=== PATIENT | male | born 1950 | race Caucasian/White ===

== ENCOUNTER 2017-05-04 01:05 | Day surgery (SDC) | payer MEDICARE, OTHER ==
[~2017-05-04] VITALS: Ht 177.8 cm; Wt 76.0 kg
[2017-05-04] VITALS (14 sets, daily range): BP systolic 92–112; BP diastolic 51–69; PULSE 45–62; RESP 13–18; O2SAT 95–100
[~2017-05-04 01:05] MED LIST: ASPI-973 PO; METO25TA99 PO; RANI150T11 PO
[2017-05-04 11:38] LABS: BASOPHILS % (AUTO) 0.5 % (0-3); EOSINOPHILS % (AUTO) 3.3 % (0-5); MONOCYTES % (AUTO) 6.4 % (4-12); Mean Corpuscular Volume 92.5 fL (81-100); NEUTROPHILS % (AUTO) 67.4 % (40-74); Platelet Count 256 bil/L (150-400)
[2017-05-04] MEDS ORDERED: ATOR40TA69 PO (11:56)
[2017-05-04] MEDS ORDERED: Heparin 10,000 Unit/1,000 mL NS Premix IV ONE ×2 (12:42→14:10)
[2017-05-04] MEDS ORDERED: Heparin 1,000 Units/500 mL NS Premix IV ONE (12:42)
[2017-05-04] MEDS ORDERED: Nitroglycerin 50,000 mcg/250 mL D5W Premix IV ONE (12:45)
[2017-05-04] MEDS ORDERED: Verapamil 2.5 mg/mL 2 mL Inj ONE (12:56)
[2017-05-04] MEDS ORDERED: Heparin 1,000 Unit/mL 10 mL Inj ONE ×2 (12:56→14:32)
[2017-05-04] MEDS ORDERED: fentaNYL-PF 50 mCg/mL 2 mL Inj ONE ×2 (12:57→13:52)
[2017-05-04] MEDS ORDERED: Atropine 1 mg/10 mL (Code) Syringe ONE (13:45)
--- NOTE | 2017-05-04 15:31 | DI95 ---
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 INDICATION: Abnormal stress test, recurrent chest pain. PROCEDURAL DETAILS: These are well enumerated in the procedure log, to which the reader and the coders are referred. Briefly, right radial approach, 6-Russian system. ANGIOGRAPHIC FINDINGS: 1. LAD is totally occluded proximally, just past the takeoff of a small 1st septal branch. 2. Circumflex is dominant. It is free of any critical stenosis. 3. The ramus intermedius is a small vessel of about a 1-1.5 mm. In its mid segment it has a 60% to 70% stenosis. 4. Right coronary artery is nondominant. Proximally it has a 70% lesion. 5. Left heart catheterization revealed an LVEDP of 10. There was about a 5-10 mm gradient upon pullback. INTERVENTIONAL REPORT: We then proceeded ahead with an intervention on the chronically occluded LAD. We started off with a Runthrough wire which was switched for a Reservations Manager 50, subsequently a Reservations Manager 200 wire. In order to provide better support a GuideLiner was used and the wire was delivered over a Finecross catheter. We were finally able to cross both the proximal and the distal cap with a Confianza wire. Subsequently the Confianza wire was exchanged out for a Runthrough wire. Balloon angioplasty was then done sequentially with a 1.20, 1.5, and 2.0 balloon. We finally stented the vessel with a 2.75 x 23 mm Xience drug-coated stent delivered at 16 atmospheres with excellent angiographic results. There was mild proximal plaque in the ostial and the very proximal LAD. This is best treated medically. With regards to his nondominant right coronary artery, this is also best treated medically. In summary, successful intervention of chronically occluded LAD. The patient is advised to stay on dual antiplatelet therapy for six months post procedure.
--- NOTE | 2017-05-04 18:32 | NUR ---
Pt transferred to P[facility] room 2001. Pt's VSS, Rt radial access site CDI with no bleeding/hematoma noted after TR band successfully removed. Report and pt handoff given to Maida SALINAS.
[2017-05-05 03:15] VITALS: PULSE 60
--- NOTE | 2017-05-05 03:24 | NUR ---
Nursing, noc shift 0100: Assumed care of patient from RITA Winn. Patient resting comfortably, R radial site dressing is CDI, no hematoma or bleeding noted. SBA mobility/BRP. Denies pain/discomfort. anticipate d/c home today. CTM for changes.
[2017-05-05 03:44] VITALS: BP 105/65; PULSE 59; RESP 16; O2SAT 97
[2017-05-05 07:39] VITALS: BP 109/63; PULSE 58; RESP 14; O2SAT 95
[2017-05-05 08:00] VITALS: PULSE 62
[2017-05-05] MEDS ORDERED: MeTOProlol XL 50 mg ER24 Tablet PO SCH (08:30)
--- NOTE | 2017-05-05 10:07 | NUR ---
Status/HR 0815 PA notified of SB 55. To hold beta edgardo this am per PA. Pt w/o complaints with stable right radial puncture. Eating and drinking. No GI/Gu concerns. Ambulating in halls with , stable and no complaints. Will continue to monitor.
--- NOTE | 2017-05-05 11:07 | PCM.DIMED ---
Discharge Instructions Date of Service May 05, 2017 Dates of Hospitalization 05/04/2017 Discharge Diagnosis Discharge Diagnosis CAD, s/p ALDO placement to LAD Medication Instructions Additional med instructions Please take all medications as prescribed. Please make sure that you take Plavix (Clopidogrel) every day at least one year. It is very important because you had stent placement. Diet Discharge Diet: Low fat, Low Sodium, Heart Healthy Activity Discharge Activity: Other (please see below) Call your provider Call your provider for: Shortness of breath, Bleeding, Chest pain Patient Instructions Patient Instructions No car driving for couple of days; you can have shower starting today; please do not soak your right arm in hot water for one week; no heavy lifting, no more than 7-10 lb for one week, otherwise please be physically active as tolerated. Follow-up plan Check CMP, CBC in one week. Provider: Leeroy Alaniz MD Follow-up in: 3 weeks Booker Tolliver PA-C May 05, 2017 11:06
--- NOTE | 2017-05-05 11:08 | PCM.DC.MED ---
Discharge Summary Date of Service May 05, 2017 Dates of Hospitalization Date of Hospital Admission 05/04/2017 Date of Discharge: May 05, 2017 Providers: Admitting Physician: Primary Care Physician: Jon Lugo MD Attending Physician: Leeroy Alaniz MD Diagnosis at Time of Discharge Diagnosis at Time of Discharge CAD, s/p ALDO placement to LAD Brief History This is a 67-year-old gentleman who had abnormal cardiac stress test and an angina, and he had elective cardiac catheterization done on 05/04/2017 Hospital Course Coronary angiography was done with a radial approach; the patient had successful intervention of chronically occluded LAD which was treated with ALDO placement. The patient tolerated procedure well. He ambulates freely. Denies having any chest discomfort or POLK, does not have symptoms of nocturnal pulmonary congestion, denies having palpitations, or dizziness/lightheadedness. His right wrist area (access site) is nontender with palpation, no bleeding, no hematoma, peripheral pulses preserved. Per telemetry: sinus rhythm with HR in 60s-70s bpm. Medications on discharge are below. Exam Vital Signs (Last) Date Time Temp Pulse Resp B/P Pulse Ox O2 Delivery O2 Flow Rate FiO2 05/05/17 07:39 36.8 58 14 109/63 95 Room Air Exam General: No active distress EENT: Mucous membranes moist, sclerae anicteric Neck: Supple, no thyromegaly Pulmo: Normal breathing sounds bilaterally, no crackles, no wheezing Cardio: RRR, no murmur appreciated, JVP is not elevated Abdomen: Nontender with palpation Vascular: No carotid bruits, peripheral pulses preserved Neuro: A&Ox3, no gross abnormalities Test 05/04/17 11:20 05/05/17 08:15 White Blood Count 7.8th/mm3 (3.8-10.1) Red Blood Count 4.39mil/mm3 (4.40-5.80) Hemoglobin 13.6g/dL (13.8-17.2) Hematocrit 40.6% (41.0-50.0) Mean Corpuscular Volume 92.5fL (81-100) Mean Corpuscular Hemoglobin 31.0pg (27.0-35.0) Mean Corpuscular Hemoglobin Concent 33.5% (32.0-37.0) Red Cell Distribution Width 12.1% (12.3-15.4) Platelet Count 256bil/L (150-400) Neutrophils (%) (Auto) 67.4% (40-74) Lymphocytes (%) (Auto) 22.3% (14-46) Monocytes (%) (Auto) 6.4% (4-12) Eosinophils (%) (Auto) 3.3% (0-5) Basophils (%) (Auto) 0.5% (0-3) Sodium Level 139mEq/L (134-144) Potassium Level 4.4mEq/L (3.5-5.2) Chloride Level 103mEq/L (97-108) Carbon Dioxide Level 25mmol/L (18-29) Blood Urea Nitrogen 13mg/dL (8-27) Creatinine 0.70mg/dL (0.76-1.27) Estimat Glomerular Filtration Rate 119mL/min (>59) Glucose Level 112mg/dL (60-99) Calcium Level 9.4mg/dL (8.5-10.1) Discharge Medications Discharge Medications Aspirin (Aspirin) 81 Mg Tablet 81 MG PO DAILY (Reported) Atorvastatin Calcium (Atorvastatin Calcium) 80 Mg Tablet 80 MG PO DAILY ( Reported) Clopidogrel Bisulfate (Plavix) 75 Mg Tablet 75 MG PO DAILY (Reported) Metoprolol Succinate ER (Metoprolol Succinate ER) 25 Mg Tab.er.24h 25 MG PO HS ( Reported) Ranitidine (Zantac) 150 Mg Tablet 150 MG PO DAILY (Reported) Ranitidine (Zantac) 150 Mg Tablet 75 MG PO DAILYWM (Reported) Additional med instructions Please take all medications as prescribed. Please make sure that you take Plavix (Clopidogrel) every day at least one year. It is very important because you had stent placement. Followup Plan Discharge Diet: Low fat, Low Sodium, Heart Healthy Discharge Activity: Other (please see below) Patient Instructions No car driving for couple of days; you can have shower starting today; please do not soak your right arm in hot water for one week; no heavy lifting, no more than 7-10 lb for one week, otherwise please be physically active as tolerated. Provider: Leeroy Alaniz MD Follow-up in: 3 weeks Booker Tolliver PA-C May 05, 2017 11:08
[2017-05-05] MEDS ORDERED: ATOR80TA77 PO (12:03)
[2017-05-05] MEDS ORDERED: CLOP75TA28 PO (12:03)
[2017-05-05] MEDS ORDERED: METO25TA99 PO (12:03)
--- NOTE | 2017-05-05 12:56 | NUR ---
Discharge Pt dc'd ambulatory with and LOGGING SUPERINTENDENT at 1255. Stable and w/o complaints. All discharge paperwork and instructions reviewed and pt and verbalized understanding. All belongings with pt.
== END 2017-05-05 12:45 | disposition home or self-care (01) ==
LOC: SOUO 01:05 → PCC 18:23 → SOUO 05-05 12:45
PROVIDERS: ATTEND Internal Medicine Cardiovascular Disease
DX: I25.119 Atherosclerotic heart disease of native coronary artery with unspecified angina pectoris (principal); I25.82 Chronic total occlusion of coronary artery; Z79.82 Long term (current) use of aspirin
CPT/HCPCS: 36415; 80048; 85025; 93005; 93458; 99152; 99153; C1725; C1769; C1874; C1887; C9607; J1644; J2250; J3010; J7030; Q9967

== ENCOUNTER 2017-05-09 13:00 | Observation (INO) | payer MEDICARE, OTHER ==
[2017-05-09] VITALS (7 sets, daily range): BP systolic 11–121; BP diastolic 55–74; PULSE 68–73; RESP 12–18; O2SAT 98–99
[~2017-05-09] VITALS: Ht 175.3 cm; Wt 74.3 kg
[~2017-05-09 13:00] MED LIST changes: +ATOR40TA69 PO; +ATOR80TA77 PO; +CLOP75TA28 PO
--- NOTE | 2017-05-09 13:11 | ED.REPORT ---
HPI-Chest Pain 40 and Over Date of Service May 09, 2017 ED Provider: Jose Luis Christensen MD 67-year-old male with CAD, GERD and recent history of pneumonia and coronary stent placement presents today with chest pain. Patient was diagnosed with pneumonia 2 weeks ago and was treated with antibiotics. However in the workup for this pneumonia was found that the patient had an occlusion of the coronary vessel which was subsequently stented. The patient presents today with chest pain and midepigastric pain which radiates along the diaphragm. The pain is made worse with deep inhalation. The pain typically comes and goes, and at the moment he rates his pain as a 2/10. Patient states that he feels this pain is similar to pain experienced with the pneumonia. He also has a history of GERD for which he takes Zantac, he states that this morning he did not take the Zantac until after breakfast, whereas he typically will take before breakfast. Patient also complains of dizziness, he states that this started shortly after his stent placement and initiation of metoprolol. He is taking Plavix as prescribed since stent placement Nursing Notes Stated Complaint: CHEST PAIN Chief Complaint: Chest Pain Allergies: Coded Allergies: cortisone (Verified Allergy, Unknown, 05/09/17) Scheduled Aspirin (Aspirin) 81 Mg Tablet 81 MG PO DAILY Atorvastatin Calcium (Atorvastatin Calcium) 80 Mg Tablet 80 MG PO DAILY Clopidogrel Bisulfate (Plavix) 75 Mg Tablet 75 MG PO DAILY Metoprolol Succinate ER (Metoprolol Succinate ER) 25 Mg Tab.er.24h 25 MG PO HS Ranitidine (Zantac) 150 Mg Tablet 150 MG PO DAILY Ranitidine (Zantac) 150 Mg Tablet 75 MG PO DAILYWM General Time Seen by MD: 13:07 Chief Complaint Chest pain Hx Obtained From: Patient Sudden in Onset?: No Onset Occurred: Just prior to arrival Symptom Duration: Waxes and wanes Location: : Epigastric Quality: Aching, Dull Severity: Current: Pain level 2 out of 10 Risk Factors )( CAD Risk Stratification Risk factors reviewed )( TAD Risk Stratification Risk factors reviewed )( PE Risk Stratification Risk factors reviewed Past Medical History Past Medical History Recent stent placement CAD GERD Recent pneumonia - treated with antibiotics Social History Other Social History: Review of Systems Basic Review of Systems : No dysuria, No frequency Hematologic: No bleeding, No bruising Constitutional: Denies: Chills, Fever Respiratory: Reports: Dyspnea on exertion Cardiovascular: Reports: Chest pain GI: Reports: Belching Neurologic: Reports: Dizziness, Lightheaded, Denies: Change LOC Complete sys rev & neg: except as marked. Physical Exam Initial Vital Signs Vital Signs (First) Date Time Temp Pulse Resp B/P Pulse Ox O2 Delivery O2 Flow Rate FiO2 05/09/17 13:01 36.7 73 16 109/71 99 Room Air Initial VS: Reviewed Head / Eyes: Atraumatic, Normocephalic, PERRL ENT: Mucous membranes moist, Conjunctiva normal, No scleral icterus Neck: Supple, Non-tender, Full range of motion Extremities: Vascular intact, No swelling Skin: Warm, Dry, No cyanosis Neurologic: Alert, Oriented Psychiatric: Mood/affect normal, Behavior normal, Normal thought content Respiratory / Chest: Breath sounds NL, No respiratory distress, No rales, No rhonchi, No wheezing Cardiovascular: Heart rate NL, Regular rhythm, Heart sounds NL Interpretation & Diagnostics Lab Results Interpretation Result Diagram: 05/10/17 0600 05/10/17 0600 Test 05/09/17 13:26 05/09/17 13:51 Prothrombin Time 10.4sec (8.1-12.5) Prothromb Time International Ratio 0.97ratio Activated Partial Thromboplast Time 27.5sec (22.8-33.0) Total Bilirubin 1.1mg/dL (0.0-1.2) Aspartate Amino Transf (AST/SGOT) 27U/L (0-50) Alanine Aminotransferase (ALT/SGPT) 20U/L (0-44) Alkaline Phosphatase 71U/L (25-160) Total Protein 7.4g/dL (6.4-8.4) Albumin 3.9g/dL (3.4-5.0) Hold Santana Top Tube Received (Received) ECG Interpretation Interpreted by: ED physician Normal ECG Interpretation: Normal rate, Normal sinus rhythm, No acute ischemic changes Re-Eval/Medical Decision Med Decision/Clinical Course ECG another cardiac monitoring including troponins resulted as normal. Chest x- ray notes that there is a left lower lobe effusion present which could be the reason for his presentation today, however ACS cannot be ruled out at this time. For this reason cardiology was consulted and requested the patient be admitted to the hospital for observation and ACS rule out. Counseled Regarding: Diagnosis, Lab results, Need for admission Discharge & Departure Primary Impression: Chest pain Chest pain type: chest pain on breathing Qualified Code: R07.1 - Chest pain on breathing Additional Impression: Stented coronary artery Disposition: ADMITTED TO HOSPITAL Discharge Condition All VS Reviewed: Yes Condition: Stable Referrals: Jon Lugo MD (PCP) EDSupervising Provider for APC: Jose Luis Christensen MD Attending Statement Attending attestation: I saw this patient in conjunction with the above named resident. I was present for all ortega portions of the history taking and physical examination. I agree with the workup, evaluation, treatment and disposition. Jose Luis Tate MD, MD May 09, 2017 13:11 Devan Rodriguez May 09, 2017 13:22 Calcium Level 9.6mg/dL (8.5-10.1) Magnesium Level 2.1mg/dL (1.6-2.6) Total Bilirubin 1.1mg/dL (0.0-1.2) Aspartate Amino Transf (AST/SGOT) 27U/L (0-50) Alanine Aminotransferase (ALT/SGPT) 20U/L (0-44) Alkaline Phosphatase 71U/L (25-160) Troponin T < 0.010ug/L (0.0-0.011) Total Protein 7.4g/dL (6.4-8.4) Albumin 3.9g/dL (3.4-5.0) Hold Santana Top Tube Received (Received) ECG Interpretation Interpreted by: ED physician Normal ECG Interpretation: Normal rate, Normal sinus rhythm, No acute ischemic changes Re-Eval/Medical Decision Med Decision/Clinical Course ECG another cardiac monitoring including troponins resulted as normal. Chest x- ray notes that there is a left lower lobe effusion present which could be the reason for his presentation today, however ACS cannot be ruled out at this time. For this reason cardiology was consulted and requested the patient be admitted to the hospital for observation and ACS rule out. Counseled Regarding: Diagnosis, Lab results, Need for admission Discharge & Departure Primary Impression: Chest pain Chest pain type: chest pain on breathing Qualified Code: R07.1 - Chest pain on breathing Additional Impression: Stented coronary artery Disposition: ADMITTED TO HOSPITAL Discharge Condition All VS Reviewed: Yes Condition: Stable Referrals: Jon Lugo MD (PCP) EDSupervising Provider for APC: Jose Luis Christensen MD Attending Statement Attending attestation: I saw this patient in conjunction with the above named resident. I was present for all ortega portions of the history taking and physical examination. I agree with the workup, evaluation, treatment and disposition. Jose Luis Tate MD, MD May 09, 2017 13:11 Devan Rodriguez DO May 09, 2017 13:22
[2017-05-09] MEDS ORDERED: LidocaineVisc 2%:Antacid 1:1 10 mL Syringe PO ONE (13:20)
[2017-05-09 13:38] LABS: BASOPHILS % (AUTO) 0.4 % (0-3); EOSINOPHILS % (AUTO) 1.8 % (0-5); MONOCYTES % (AUTO) 7.6 % (4-12); Mean Corpuscular Hemoglobin 30.9 pg (27.0-35.0); Mean Corpuscular Volume 91.9 fL (81-100); NEUTROPHILS % (AUTO) 72.7 % (40-74); Platelet Count 298 bil/L (150-400)
[2017-05-09 14:20] LABS: Magnesium 2.1 mg/dL (1.6-2.6)
--- NOTE | 2017-05-09 14:23 | DRSVH ---
PROCEDURE: X-RAY CHEST, TWO VIEWS ([id number]) INDICATIONS: 67 year-old male with chest pain, and recent cardiac stent placement. TECHNIQUE: 2 views of the chest were acquired. COMPARISON: [facility], , CHEST 2 VIEW, 04/08/2017, 14:06. [facility], , CHEST 2 VIEW, 03/28/2017, 8:47. [facility], , CHEST 2 VIEW, 03/12/2017, 9:46. FINDINGS: Surgical changes and devices: None. Lungs and pleura: Left costophrenic angle blunting is unchanged. No pneumothorax. Lungs are clear. Mediastinum: Mediastinal contours are normal. Heart size is normal. There is aortic atherosclerosi s. Bones and chest wall: No suspicious bony abnormalities. Soft tissues appear unremarkable. IMPRESSION: No acute cardiopulmonary disease. Trace basal left pleural effusion versus basal left ple ural thickening as before. Dictated by: Catracho Harrison M.D. on 05/09/2017 at 14:20 Approved by: Catracho Harrison M.D. on 05/09/2017 at 14:21
[2017-05-09 14:32] LABS: TROPONIN T < 0.010 ug/L (0.0-0.011)
[2017-05-09] MEDS ORDERED: Alum-Mag Hydrox-Simeth 30 mL Suspension PO PRN ×2 (16:25→18:55)
[2017-05-09] MEDS ORDERED: Ondansetron 2 mg/mL 2 mL Inj IVPUSH PRN ×2 (16:25→18:55)
[2017-05-09 17:10] LABS: COLOR,URINE YELLOW (YELLOW)
[2017-05-09 17:11] LABS: APPEARANCE,URINE CLEAR (CLEAR,HAZY); OCCULT BLOOD,URINE NEGATIVE (NEGATIVE); UROBILINOGEN,URINE NORMAL (NORMAL)
--- NOTE | 2017-05-09 17:15 | NUR ---
ADMIT TO [facility] [place] Report received from Chiquita Fregoso RN in ED. Pt brought up to floor at 1715 via gurney. Able to transfer on foot to bed. Strong and steady on feet. Admission interventions and MED REC completed. Pt oriented to unit, room and call light. All belongings recorded - waiver signed. Tele placed - SR 68. Pt reports minor 1/10 chest pain - possibly related to Pneumonia/GERD. paged to update.
[2017-05-09] MEDS ORDERED: RANI150T11 PO ×3 (17:26→19:15)
[2017-05-09] MEDS ORDERED: Polyethylene Glycol (PEG) 17 Gm Powder PO PRN (18:55)
[2017-05-09] MEDS ORDERED: ASPI-973 PO (19:06)
[2017-05-09] MEDS ORDERED: ATOR80TA77 PO (19:08)
[2017-05-09] MEDS ORDERED: ATOR40TA69 PO (19:08)
--- NOTE | 2017-05-09 19:11 | PCM.HPMED ---
Subjective Date of Service May 09, 2017 Primary Provider: Admitting Physician: cM Fox Primary Care Physician: Jon Lugo MD Attending Physician: Mc Fox Chief Complaint: chest pain History of Present Illness: 67-year-old male with CAD, GERD and recent history of pneumonia and coronary stent placement presents today with chest pain. He says he was diagnosed with pneumonia about 2 months ago after presenting to his PCP with complaints of midsternal chest discomfort with deep breathing. He did not have any associated fever or chills at that time but did have some associated cough and shortness of breath. Chest x-ray according to the patient was notable for pneumonia and he was put on 2 courses of Azithromycin back to back and then his symptoms resolved for 2 weeks and then reoccurred. According to patient repeat CXR was again suggestive of pneumonia and so this time he was put on a 10 course of Levofloxacin which he finished on 04/17/17. In the interim he underwent a stress test which was positive and was referred to cardiology (Dr. Alaniz) who performed a cardiac cath on 05/04 and ended up placing a stent to an occluded LAD. Patient had been symptom free since his cath till yesterday when started again feeling some mid-sternal chest discomfort and burning sensation with deep breathing. He called cardiology office and was instructed to go to urgent care and from there was sent to ED and in ED cardiology (Dr. Cannon) was consulted who reportedly recommended patient be admitted for further workup and observation. He otherwise denies any other associated or new signs or symptoms other than about 10 lb weight loss since March of 2017. Review of Systems: Constitutional: Negative, except as otherwise mentioned in the history above. Ophthalmologic: Negative, except as otherwise mentioned in the history above. Cardiovascular: Negative, except as otherwise mentioned in the history above. Respiratory: Negative, except as otherwise mentioned in the history above. Gastrointestinal: Negative, except as otherwise mentioned in the history above. Genitourinary: Negative, except as otherwise mentioned in the history above. Musculoskeletal: Negative, except as otherwise mentioned in the history above. Neurological: Negative, except as otherwise mentioned in the history above. Psychiatric: Negative, except as otherwise mentioned in the history above. Hematologic/Lymphatic: Negative, except as otherwise mentioned in the history above. Allergic/Immunologic: Negative, except as otherwise mentioned in the history above. Allergies Coded Allergies: cortisone (Verified Allergy, Unknown, 05/09/17) Home Medications Aspirin (Aspirin) 81 Mg Tablet 81 MG PO DAILY Atorvastatin Calcium (Atorvastatin Calcium) 80 Mg Tablet 80 MG PO DAILY Clopidogrel (Clopidogrel) 75 Mg Tablet 75 MG PO DAILY Metoprolol Succinate ER (Metoprolol Succinate ER) 25 Mg Tab.er.24h 25 MG PO DAILY Ranitidine (Zantac) 150 Mg Tablet 150 MG PO BID Exam Vital Signs & I/O Vital Sign- Last 8 Hours Date Time Temp Pulse Resp B/P Pulse Ox O2 Delivery O2 Flow Rate FiO2 05/09/17 17:30 71 05/09/17 17:11 36.7 68 16 121/73 98 Room Air 05/09/17 17:09 36.7 68 16 121/73 98 Room Air 05/09/17 15:14 73 16 99/60 98 Room Air 05/09/17 14:28 69 12 102/55 99 05/09/17 13:01 36.7 73 16 109/71 99 Room Air Lab & Micro Results Laboratory Tests Test 05/09/17 13:26 05/09/17 13:51 05/09/17 16:58 White Blood Count 10.3th/mm3 (3.8-10.1) Red Blood Count 4.46mil/mm3 (4.40-5.80) Hemoglobin 13.8g/dL (13.8-17.2) Hematocrit 41.0% (41.0-50.0) Mean Corpuscular Volume 91.9fL (81-100) Mean Corpuscular Hemoglobin 30.9pg (27.0-35.0) Mean Corpuscular Hemoglobin Concent 33.7% (32.0-37.0) Red Cell Distribution Width 12.3% (12.3-15.4) Platelet Count 298bil/L (150-400) Neutrophils (%) (Auto) 72.7% (40-74) Lymphocytes (%) (Auto) 17.1% (14-46) Monocytes (%) (Auto) 7.6% (4-12) Eosinophils (%) (Auto) 1.8% (0-5) Basophils (%) (Auto) 0.4% (0-3) Sodium Level 136mEq/L (134-144) Potassium Level 4.9mEq/L (3.5-5.2) Chloride Level 100mEq/L (97-108) Carbon Dioxide Level 19mmol/L (18-29) Blood Urea Nitrogen 17mg/dL (8-27) Creatinine 0.63mg/dL (0.76-1.27) Estimat Glomerular Filtration Rate 135mL/min (>59) Glucose Level 103mg/dL (60-99) Calcium Level 9.6mg/dL (8.5-10.1) Magnesium Level 2.1mg/dL (1.6-2.6) Total Bilirubin 1.1mg/dL (0.0-1.2) Aspartate Amino Transf (AST/SGOT) 27U/L (0-50) Alanine Aminotransferase (ALT/SGPT) 20U/L (0-44) Alkaline Phosphatase 71U/L (25-160) Troponin T < 0.010ug/L (0.0-0.011) Total Protein 7.4g/dL (6.4-8.4) Albumin 3.9g/dL (3.4-5.0) Hold Santana Top Tube Received (Received) Urine Color Yellow (YELLOW) Urine Appearance Clear (CLEAR,HAZY) Urine pH 5.0 (5.0-8.0) Urine Specific [place] 1.010 (1.003-1.035) Urine Protein Negativemg/dL (NEG,TRACE) Urine Glucose (UA) Negativemg/dL (NEGATIVE) Urine Ketones Tracemg/dL (NEGATIVE) Urine Occult Blood Negative (NEGATIVE) Urine Nitrite Negative (NEGATIVE) Urine Bilirubin Negative (NEGATIVE) Urine Urobilinogen Normalmg/dL (NORMAL) Urine Leukocyte Esterase Negative (NEGATIVE) Urine RBC 0-2/hpf (0-2) Urine WBC 0-5/hpf (0-5) Urine Epithelial Cells None/hpf (NONE-MOD) Urine Crystals None seen (NONE SEEN) Urine Bacteria None/hpf (NONE-FEW) Urine Hyaline Casts None/lpf (NONE) Urine Granular Casts None seen (NONE SEEN) Urine Waxy Casts None seen (NONE SEEN) Urine Red Blood Cell Casts None seen (NONE SEEN) Urine White Blood Cell Casts None seen (NONE SEEN) Urine Mucus None seen (None Seen) Urine Trichomonas None seen (NONE SEEN) Urine Yeast None (NONE SEEN) Urinalysis Comment None Urine Culture Reflexed Not indicated Result Diagram: 05/09/17 1326 05/09/17 1326 PMH 1. CAD s/p stent to LAD on 05/04/17 2. GERD 3. Recurrent pneumonia (as noted in H&P) Family History Father with history of hear attack and CAD in his 50's Social History Hx Alcohol Use: No Hx Substance Use: No Smoking Status: Never Smoker Exam Vital Signs Vital Sign - Last Date Time Temp Pulse Resp B/P Pulse Ox O2 Delivery O2 Flow Rate FiO2 05/09/17 17:30 71 05/09/17 17:11 36.7 16 121/73 98 Room Air General: Alert, Oriented X3, Cooperative, No Acute Distress Head: Normal Eyes: PERRLA, EOMI, Scleral Anicteric Nose: Mucous Membr Moist/[place] Mouth: Mucous Membr Moist/[place] Neck: Supple Chest & Lungs: Chest Wall Normal, Clear to auscultation & percussion Cardiovascular: Regular Rate/Rhythm Pulses: NL carotid, radial, femoral, DP, PT Abdomen: Non-tender, Non-distended, Normoactive bowel tones, Soft Extremities: No cyanosis/clubbing/edma bilat Skin: Other (no ulcer/rash) Neurological: Grossly Neurologically Intact, Cranial Nerves 2-12 Intact, Normal Speech Additional Information: Psych: Calm, appropriate Lab and Diagnostics Result Diagram: 05/09/17 1326 05/09/17 1326 X-Rays, CTs and MRIs Date of Service: 05/09/17 1306 PROCEDURE: X-RAY CHEST, TWO VIEWS ([id number]) IMPRESSION: No acute cardiopulmonary disease. Trace basal left pleural effusion versus basal left pleural thickening as before. Dictated by: Catracho Harrison M.D. on 05/09/2017 at 14:20 Approved by: Catracho Harrison M.D. on 05/09/2017 at 14:21 12-lead ECG NSR. No significant ST elevation/depression Assessment & Plan 67-year-old male with CAD, GERD and recent history of pneumonia and coronary stent placement presents today with chest pain. # Acute somewhat atypical and pleuritic appearing chest pain with known history of CAD, present on admission. Ongoing - Tele - Rule out GA by cycling Trop. (EKG and first Trop so far are reassuring) - Continue with home dose ASA + Plavix + Statin + Metoprolol - Fasting lipid panel - PPI incase symptoms due to reflux - Check CTA chest and rule out PE given somewhat pleuritic nature of the pain and ongoing symptoms since March of this year - Check Echo (per patient has never had an Echo despite recent cardiac workup) - Followup with pending cardiology consult # GERD - start PPI # Recurrent "pneumonia" and reported recent weight loss - CTA chest as noted above - Check procalcitonin with am labs - No evidence of active infection at this point and thus no Abx Expected length of hospital stay is less than 2 midnights and likely home in am GI Prophylaxis: Proton Pump Inhibitor VTE Prophylaxis: Sub-Q Heparin (Unfractionated) Resuscitation Status: CPR: Attempt Resuscitation (discussed and verified with patient) Time spent 60 min Mc Fox May 09, 2017 19:11
[2017-05-09] MEDS ORDERED: METO25TA99 PO (19:12)
[2017-05-09] MEDS ORDERED: CLOP75TA3 PO (19:12)
[2017-05-09 19:25] LABS: INR 0.97 ratio
--- NOTE | 2017-05-09 20:18 | DRSVH ---
PROCEDURE: CT ANGIO CHEST PULMONARY EMBOLISM ([id number]) INDICATIONS: chest pain TECHNIQUE: After the administration of intravenous contrast, 2 mm thick sections acquired from the pulmonary api jeromy to the posterior costophrenic angles. 3-dimensional maximum intensity projection (MIP) coronal a nd sagittal reformats were then acquired through the thorax. For radiation dose reduction, the follo wing was used: automated exposure control, adjustment of mA and/or kV according to patient size. COMPARISON: None. FINDINGS: Image quality: Excellent. Pulmonary arteries: Pulmonary arteries are normal in size, and demonstrate no intraluminal filling d efects to suggest central pulmonary embolism. Lungs and pleura: Small left pleural effusion with adjacent atelectasis. Scattered bibasilar groundgl ass and patchy opacities. No pneumothorax. The central airways appear grossly patent Mediastinum: Heart size is enlarged, without pericardial effusion. No mediastinal or hilar adenopat hy. Thoracic aorta is normal in caliber and enhancement. Esophagus is normal in caliber, without hi atal hernia. Bones and chest wall: No suspicious bony lesions. Ribs and thoracic spine appear intact throughout. Thyroid gland negative. No axillary or supraclavicular adenopathy. Abdomen: Visualized upper abdominal solid organs appear normal in the early arterial phase of enhanc ement. There are presumed multiple hepatic cysts although some of these are too small to characterize definitively. IMPRESSION: No evidence of pulmonary embolism. Small left pleural effusion with adjacent atelectasis. Bibasilar atelectasis although recommend clinical correlation to exclude superimposed mild pulmonary edema. Presumed multiple hepatic cysts although some of these are too small to characterize definitively. Dictated by: Charan Encarnacion M.D. on 05/09/2017 at 20:12 Approved by: Charan Encarnacion M.D. on 05/09/2017 at 20:16
[2017-05-09] MEDS ORDERED: MeTOProlol XL 25 mg ER24 Tablet PO SCH (21:05)
[2017-05-10 00:42] VITALS: BP 113/62; PULSE 64; RESP 18; O2SAT 98
[2017-05-10 04:37] VITALS: BP 107/67; PULSE 55; RESP 18; O2SAT 96
--- NOTE | 2017-05-10 05:56 | NUR ---
Pain on deep inspiration Pt reports of pain upon inspiration. Pt is upset, "I want to know the plan and what is going on with me". This RN tried to explain to the pt about the plan of having an echo and possible of having cardiology consult. Pt understands but still would want to talk to the Doctor as early as possible.
[2017-05-10 06:20] LABS: BASOPHILS % (AUTO) 0.4 % (0-3); EOSINOPHILS % (AUTO) 3.4 % (0-5); Mean Corpuscular Hemoglobin 30.9 pg (27.0-35.0); Mean Corpuscular Volume 92.7 fL (81-100); NEUTROPHILS % (AUTO) 70.1 % (40-74); Platelet Count 244 bil/L (150-400)
[2017-05-10 07:00] LABS: TROPONIN T 0.01 ug/L (0.0-0.011)
[2017-05-10] MEDS ORDERED: METO25TA99 PO (07:18)
[2017-05-10] MEDS ORDERED: Pantoprazole 40 mg ER24 Tablet PO SCH (07:30)
[2017-05-10] MEDS ORDERED: Heparin 5,000 Unit/mL Inj SUBQ SCH (08:30)
[2017-05-10] MEDS ORDERED: MeTOProlol XL 25 mg ER24 Tablet PO SCH (08:30)
[2017-05-10 08:46] VITALS: BP 112/67; PULSE 67; RESP 18; O2SAT 97
--- NOTE | 2017-05-10 10:03 | NUR ---
Case Management: SIMONS and Medicare Part D delivered and explained to pt. Signed original placed in chart. Copy left at bedside. Ayana Kumar RN
[2017-05-10 10:17] VITALS: PULSE 76
--- NOTE | 2017-05-10 11:32 | NUR ---
Social Work-initial assessment/ readiness for discharge: Data:See initial assessment.Pt is a 67 y/o male who was admitted on 05/09/17 for ACS per H&P. Pt's insurance is [facility] and PCP is Jon Lugo MD. EMR reviewed. Pt's readmission score is 1. SW met with pt to discuss discharge planning, SW role explained. Pt resides at home with his where he remains independent with ADLS. Pt uses no DME at baseline and drives. 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 Pt has no HH or SNF history. Pt has no equine manager care insurance or VA benefits. SW discussed DPOA/ advanced directive, pt confirms his has been completed. SW provided pt with discharge planning checklist booklet and encouraged pt to call with any questions. SW provided phone number and plan on white board. Pt's to provide transport home. No discharge needs identified. SW will continue to follow if needs arise. Assessment:pt who is independent at baseline. Plan:Pt to discharge home when medically stable via pOV. No discharge needs identified. SW will continue to follow if needs arise. EBONIE Monahan Addendum: 05/10/17 at 1137 by RITU MANZANARES Amended: Links added.
--- NOTE | 2017-05-10 13:44 | DRSVH ---
[facility] [address] [place] [address] Echocardiogram Report Name: JUSTUS BLOOM JStudy Date: 05/10/2017 Height: 69 in Hospital Exam Location: [facility] Weight: 164 lb Gender: Other BSA: 1.9 m2 : 1950 Age: 67 yrs BP: 107/67 mmHg Reason For Study: CHEST PAIN Ordering Physician: RAMIRO ANNE Performed By: Daniel Simmons Referring Physician: Dr. Jon Lugo Interpretation Summary Left ventricular systolic function is normal without focal wall motion abnormalities with the ejection fraction visually estimated to be 60-65%. Left ventricular wall thickness is borderline increased. The E/A ratio is reversed, suggesting impaired early relaxation of the left ventricle or a reduced preload state. The right ventricle is at the upper limits of normal in size and right ventricular systolic function is at the lower limits of normal. The right ventricular systolic pressure is estimated at 21 mmHg assuming a right atrial pressure of 3 mm Hg. Both atria are normal in size. There is no significant valvular heart disease. The ascending aorta is mildly enlarged. Procedure: A two-dimensional transthoracic echocardiogram with color flow and Doppler was performed. The study quality was technically good. There is no prior echocardiogram noted for this patient. The patient was in normal sinus rhythm during the exam. Left Ventricle: The left ventricle is normal in size. Left ventricular wall thickness is borderline increased. Left ventricular systolic function is normal without focal wall motion abnormalities. The ejection fraction is estimated to be 60-65%. The E/A ratio is reversed, suggesting impaired early relaxation of the left ventricle or a reduced preload state. Right Ventricle: The right ventricle is at the upper limits of normal in size. Right ventricular systolic function is at the lower limits of normal. Atria: Both atria are normal in size. The interatrial septum is intact with no evidence for an atrial septal defect. Mitral Valve: The mitral valve is normal in structure and function. There is trace mitral regurgitation. Aortic Valve: The aortic valve is normal in structure and function. The aortic valve is trileaflet. The aortic valve opens well. No aortic regurgitation is present. Tricuspid Valve: The tricuspid valve is normal in structure and function. There is trace tricuspid regurgitation. The right ventricular systolic pressure is estimated at 21 mmHg assuming a right atrial pressure of 3 mm Hg. Pulmonic Valve: The pulmonic valve is normal in structure and function. There is trace pulmonic regurgitation. There is no significant valvular heart disease. Great Vessels: The aortic root is normal size. The ascending aorta is mildly enlarged. The pulmonary artery is normal size. The IVC is of normal diameter and collapses greater than 50% with a sniff. This suggests a low right atrial pressure of 3 mm Hg. Pericardium/ Pleura There is no pericardial effusion. There is no pleural effusion. MMode/2D Measurements & Calculations LVIDd: 4.9 cm LA dimension: 3.7 cm RA long axis Ao root diam LVIDs: 3.1 cm FS: 37.6 % LA A2 area: 19.0 cm RA area Aortic Jxn: 2.5 cm EPSS: 0.66 cm LA A4 area: 19.6 cm asc Aorta Diam IVSd: 1.1 cm LA length (vol) : 17.2 cm LVPWd: 1.1 cm RA vol Ao Arch Diam (Prox LA vol: 56.3 ml : 50.9 ml Trans): 2.5 cm LA vol index RA : 26.8 mm2 IVC diam: 1.5 cm LV bond. diameter/BSA LV sys. diameter/BSA RVD1 (basal) RVD2 (mid): 4.2 cm (cm/m^2): 2.6 (cm/m^2): 1.6 Doppler Measurements & Calculations Ao V2 max MV E max dennis MV E/A: 0.91 TR max dennis: 209.7 cm/sec : 124.1 cm/sec : 53.6 cm/sec Med Peak E' Dennis TR max P.6 mmHg Ao max PG MV A max dennis PA V2 max: 68.1 cm/sec : 6.2 mmHg : 58.6 cm/sec E/E' med: 7.4 PA mean P.1 mmHg Ao mean PG Pulm A Revs Dur PA Accel Time: 0.14 sec : 4.0 mmHg MV A dur: 0.13 sec MV dec time Ao V2 mean PA V2 mean Pulm A Revs Dur - MV A : 0.24 sec : 96.1 cm/sec : 50.4 cm/sec Dur: -0.01 msec Ao V2 VTI PA pr(Accel) : 26.7 cm : 13.9 mmHg Reading Physician:01:[id number] PM
--- NOTE | 2017-05-10 15:16 | NUR ---
Social Work-discharge: Data:EMR Reviewed. Pt is on day 1 of hospitalization for ACS per H&P. Pt is medically stable for discharge. Pt has been up independent in his room. No discharge needs identified. All updated and agreeable to plan. Assessment:Pt who is independent at baseline. Plan:Pt to discharge home when medically stable via POV. No discharge needs identified. All updated and agreeable to plan. EBONIE Monahan
[2017-05-10 15:20] VITALS: BP 123/71; PULSE 55; RESP 18; O2SAT 97
--- NOTE | 2017-05-10 15:20 | PCM.DIMED ---
Discharge Instructions Date of Service May 10, 2017 Dates of Hospitalization May 09, 2017 at 16:54 Discharge Diagnosis Discharge Diagnosis # Acute somewhat atypical and pleuritic appearing chest pain of unclear etiology. Present on admission - Ruled out acute myocardial infarction - Ruled out pulmonary embolism with negative CTA of chest # GERD Medication Instructions Additional med instructions Resume home medications as before Diet Discharge Diet: Low fat, Low Sodium, Heart Healthy Activity Discharge Activity: No restrictions Call your provider Call your provider for: Fever or Chills, Shortness of breath, Bleeding, Chest pain Patient Instructions Patient Instructions Seek immediate medical attention if any new or worsening signs or symptoms occur. Follow-up plan 1. Followup with primary care provider in 3-7 days 2. Followup with your mobile device developer as previously planned Follow-up Provider: Jon Lugo MD Provider: Leeroy Alaniz MD, Masoud May 10, 2017 15:20
--- NOTE | 2017-05-10 15:26 | PCM.DC.MED ---
Discharge Summary Date of Service May 10, 2017 Dates of Hospitalization Date of Hospital Admission May 09, 2017 at 16:54 Date of Discharge: May 10, 2017 Providers: Admitting Physician: Mc Fox Primary Care Physician: Jon Lugo MD Attending Physician: Mc Fox Diagnosis at Time of Discharge Diagnosis at Time of Discharge # Acute somewhat atypical and pleuritic appearing chest pain of unclear etiology. Present on admission - Ruled out acute myocardial infarction - Ruled out pulmonary embolism with negative CTA of chest # GERD Procedures XRay, CTs & MRIs Date of Service: 05/09/17 1306 PROCEDURE: X-RAY CHEST, TWO VIEWS ([id number]) IMPRESSION: No acute cardiopulmonary disease. Trace basal left pleural effusion versus basal left pleural thickening as before. Dictated by: Catracho Harrison M.D. on 05/09/2017 at 14:20 Approved by: Catracho Harrison M.D. on 05/09/2017 at 14:21 Date of Service: 05/09/17 6365 PROCEDURE: CT ANGIO CHEST PULMONARY EMBOLISM ([id number]) IMPRESSION: No evidence of pulmonary embolism. Small left pleural effusion with adjacent atelectasis. Bibasilar atelectasis although recommend clinical correlation to exclude superimposed mild pulmonary edema. Presumed multiple hepatic cysts although some of these are too small to characterize definitively. Dictated by: Charan Encarnacion M.D. on 05/09/2017 at 20:12 Approved by: Charan Encarnacion M.D. on 05/09/2017 at 20:16 ECG 12 Lead [address] No significant ST elevation/depression Cardiac Echo Impression Date of Service: 05/10/17 1535 Echocardiogram Report Interpretation Summary Left ventricular systolic function is normal without focal wall motion abnormalities with the ejection fraction visually estimated to be 60-65%. Left ventricular wall thickness is borderline increased. The E/A ratio is reversed, suggesting impaired early relaxation of the left ventricle or a reduced preload state. The right ventricle is at the upper limits of normal in size and right ventricular systolic function is at the lower limits of normal. The right ventricular systolic pressure is estimated at 21 mmHg assuming a right atrial pressure of 3 mm Hg. Both atria are normal in size. There is no significant valvular heart disease. The ascending aorta is mildly enlarged. Reading Physician:01:43 PM Brief History 67-year-old male with CAD, GERD and recent history of pneumonia and coronary stent placement presents today with chest pain. He says he was diagnosed with pneumonia about 2 months ago after presenting to his PCP with complaints of midsternal chest discomfort with deep breathing. He did not have any associated fever or chills at that time but did have some associated cough and shortness of breath. Chest x-ray according to the patient was notable for pneumonia and he was put on 2 courses of Azithromycin back to back and then his symptoms resolved for 2 weeks and then reoccurred. According to patient repeat CXR was again suggestive of pneumonia and so this time he was put on a 10 course of Levofloxacin which he finished on 04/17/17. In the interim he underwent a stress test which was positive and was referred to cardiology (Dr. Alaniz) who performed a cardiac cath on 05/04 and ended up placing a stent to an occluded LAD. Patient had been symptom free since his cath till yesterday when started again feeling some mid-sternal chest discomfort and burning sensation with deep breathing. He called cardiology office and was instructed to go to urgent care and from there was sent to ED and in ED cardiology (Dr. Cannon) was consulted who reportedly recommended patient be admitted for further workup and observation. He otherwise denies any other associated or new signs or symptoms other than about 10 lb weight loss since March of 2017. Hospital Course # Acute somewhat atypical and pleuritic appearing chest pain with known history of CAD, present on admission. Ongoing - Ruled out PA by cycling Trop. - Continued with home dose ASA + Plavix + Statin + Metoprolol - CTA chest ruled out PE (as noted above) - Echo unremarkable as noted above - Reviewed echo as well as patient's case with cardiology (Dr. Jones) who did not have any further recommendations for cardiac workup at this time other than continuing current meds and followup with patient's budget accountant as outpatient. # GERD. Stable. # Recurrent "pneumonia" and reported recent weight loss - No evidence of active infection at this point and thus no Abx - Will defer further workup to PCP as outpatient Exam Vital Signs (Last) Date Time Temp Pulse Resp B/P Pulse Ox O2 Delivery O2 Flow Rate FiO2 05/10/17 10:17 76 05/10/17 08:46 36.4 18 112/67 97 Room Air Exam General: Alert, Oriented X3, Cooperative, No Acute Distress Head: Normal Eyes: Scleral Anicteric Nose: Mucous Membr Moist/[place] Mouth: Mucous Membr Moist/[place] Neck: Supple Chest & Lungs: Chest Wall Normal, Clear to auscultation bilat Cardiovascular: Regular Rate/Rhythm Abdomen: Non-tender, Non-distended, Normoactive bowel tones, Soft Extremities: No cyanosis/clubbing/edema bilat Neurological: Grossly Neurologically Intact, Normal Speech Test 05/09/17 13:26 05/09/17 13:51 05/09/17 16:58 05/10/17 06:00 Prothrombin Time 10.4sec (8.1-12.5) Prothromb Time International Ratio 0.97ratio Activated Partial Thromboplast Time 27.5sec (22.8-33.0) Total Bilirubin 1.1mg/dL (0.0-1.2) Aspartate Amino Transf (AST/SGOT) 27U/L (0-50) Alanine Aminotransferase (ALT/SGPT) 20U/L (0-44) Alkaline Phosphatase 71U/L (25-160) Total Protein 7.4g/dL (6.4-8.4) Albumin 3.9g/dL (3.4-5.0) Hold Santana Top Tube Received (Received) Urine Color Yellow (YELLOW) Urine Appearance Clear (CLEAR,HAZY) Urine pH 5.0 (5.0-8.0) Urine Specific [place] 1.010 (1.003-1.035) Urine Protein Negativemg/dL (NEG,TRACE) Urine Glucose (UA) Negativemg/dL (NEGATIVE) Urine Ketones Tracemg/dL (NEGATIVE) Urine Occult Blood Negative (NEGATIVE) Urine Nitrite Negative (NEGATIVE) Urine Bilirubin Negative (NEGATIVE) Urine Urobilinogen Normalmg/dL (NORMAL) Urine Leukocyte Esterase Negative (NEGATIVE) Urine RBC 0-2/hpf (0-2) Urine WBC 0-5/hpf (0-5) Urine Epithelial Cells None/hpf (NONE-MOD) Urine Crystals None seen (NONE SEEN) Urine Bacteria None/hpf (NONE-FEW) Urine Hyaline Casts None/lpf (NONE) Urine Granular Casts None seen (NONE SEEN) Urine Waxy Casts None seen (NONE SEEN) Urine Red Blood Cell Casts None seen (NONE SEEN) Urine White Blood Cell Casts None seen (NONE SEEN) Urine Mucus None seen (None Seen) Urine Trichomonas None seen (NONE SEEN) Urine Yeast None (NONE SEEN) Urinalysis Comment None Urine Culture Reflexed Not indicated White Blood Count 8.0th/mm3 (3.8-10.1) Red Blood Count 4.24mil/mm3 (4.40-5.80) Hemoglobin 13.1g/dL (13.8-17.2) Hematocrit 39.3% (41.0-50.0) Mean Corpuscular Volume 92.7fL (81-100) Mean Corpuscular Hemoglobin 30.9pg (27.0-35.0) Mean Corpuscular Hemoglobin Concent 33.3% (32.0-37.0) Red Cell Distribution Width 12.1% (12.3-15.4) Platelet Count 244bil/L (150-400) Neutrophils (%) (Auto) 70.1% (40-74) Lymphocytes (%) (Auto) 18.8% (14-46) Monocytes (%) (Auto) 7.0% (4-12) Eosinophils (%) (Auto) 3.4% (0-5) Basophils (%) (Auto) 0.4% (0-3) Sodium Level 138mEq/L (134-144) Potassium Level 4.4mEq/L (3.5-5.2) Chloride Level 101mEq/L (97-108) Carbon Dioxide Level 21mmol/L (18-29) Blood Urea Nitrogen 15mg/dL (8-27) Creatinine 0.71mg/dL (0.76-1.27) Estimat Glomerular Filtration Rate 117mL/min (>59) Glucose Level 134mg/dL (60-99) Calcium Level 9.1mg/dL (8.5-10.1) Magnesium Level 2.0mg/dL (1.6-2.6) Triglycerides Level 72mg/dL (0-149) Cholesterol Level 121mg/dL (100-199) LDL Cholesterol, Calculated 71.600mg/dL (0-99) VLDL Cholesterol 14.400mg/dL HDL Cholesterol 35mg/dL (>39) Cholesterol/HDL Ratio 3.46 (0.0-4.4) Procalcitonin 0.05ng/mL (0.00-0.08) Test 05/10/17 11:13 Troponin T 0.010ug/L (0.0-0.011) Discharge Medications Discharge Medications Aspirin (Aspirin) 81 Mg Tablet 81 MG PO DAILY (Reported) Atorvastatin Calcium (Atorvastatin Calcium) 80 Mg Tablet 80 MG PO DAILY ( Reported) Clopidogrel Bisulfate (Plavix) 75 Mg Tablet 75 MG PO DAILY (Reported) Metoprolol Succinate ER (Metoprolol Succinate ER) 25 Mg Tab.er.24h 25 MG PO HS ( Reported) Ranitidine (Zantac) 150 Mg Tablet 150 MG PO DAILY (Reported) Ranitidine (Zantac) 150 Mg Tablet 75 MG PO DAILYWM (Reported) Additional med instructions Resume home medications as before Followup Plan Disposition: Home Follow-up plan 1. Followup with primary care provider in 3-7 days 2. Followup with your budget accountant as previously planned Discharge Diet: Low fat, Low Sodium, Heart Healthy Discharge Activity: No restrictions Patient Instructions Seek immediate medical attention if any new or worsening signs or symptoms occur. Follow-up Provider: Jon Lugo MD Provider: Leeroy Alaniz MD Time spent 35 min copies to: Jon Lugo MD; Leeroy Alaniz MD, Masoud May 10, 2017 15:25
--- NOTE | 2017-05-10 16:24 | NUR ---
Discharge Reviewed discharge paperwork and care notes with pt and - disclaimer signed. IV DCd intact, tele removed, all belongings with pt. Pt denies pain and SOB, strong and steady on feet. Pt escorted out of unit on foot, leaving with .
== END 2017-05-10 16:01 | disposition home or self-care (01) ==
LOC: SED 13:00 → MPC 16:54
PROVIDERS: ADMIT Internal Medicine; ATTEND Internal Medicine
DX: R07.89 Other chest pain (principal); R07.81 Pleurodynia; I25.10 Atherosclerotic heart disease of native coronary artery without angina pectoris; Z95.5 Presence of coronary angioplasty implant and graft; K21.9 Gastro-esophageal reflux disease without esophagitis; Z87.01 Personal history of pneumonia (recurrent); Z79.82 Long term (current) use of aspirin; Z79.02 Long term (current) use of antithrombotics/antiplatelets
CPT/HCPCS: 36415; 71020; 71275; 80048; 80053; 80061; 81000; 83735; 84145; 84484; 85025; 85610; 85730; 93005; 99285; C8929; G0378; Q9967

== ENCOUNTER → 2017-07-22 | Day surgery (SDC) | payer MEDICARE, OTHER ==
[2017-07-22] VITALS (12 sets, daily range): BP systolic 105–123; BP diastolic 57–72; PULSE 50–60; RESP 12–16; O2SAT 96–100
[~2017-07-22] MED LIST changes: +0.9% Sodium Chloride 0 ML ONE; +APIX5TAB PO; -ASPI-973 PO; -ATOR40TA69 PO; -CLOP75TA28 PO; +CLOP75TA3 PO; +HYDROcodone-APAP 5-325 mg Tablet PO PRN; +Heparin 1,000 Unit/mL 10 mL Inj ONE; +Heparin 10,000 Unit/1,000 mL NS Premix IV ONE; +Isoproterenol 200 mCg/mL 1 mL Inj IV ONE; +METO-369 PO; -METO25TA99 PO; +NITR0.4T SL; +Ondansetron 2 mg/mL 2 mL Inj IVPUSH PRN; +fentaNYL-PF 50 mCg/mL 2 mL Inj ONE
[2017-07-22 06:38] LABS: BASOPHILS % (AUTO) 0.8 % (0-3); EOSINOPHILS % (AUTO) 4.6 % (0-5); MONOCYTES % (AUTO) 7.7 % (4-12); Mean Corpuscular Hemoglobin 31.5 pg (27.0-35.0); Mean Corpuscular Volume 91.4 fL (81-100); NEUTROPHILS % (AUTO) 61.4 % (40-74); Platelet Count 222 bil/L (150-400)
[2017-07-22 06:50] LABS: INR 1.01 ratio
--- NOTE | 2017-07-22 14:50 | NUR ---
Discharge instructions reviewed with patient. Right groin telfa dressing changed to bandaid and remains dry and intact, groin soft. Patient has had bradycardic episodes to HR 43-47 intermittently when he returned from procedure but seems to be more consistently in the 50's range. Dr Cameron informed and metoprolol dose reduced by half. Pt is ambulatory, no complaints other than back pain which is improving having gotten out of bed.
--- NOTE | 2017-07-22 18:40 | PROCED ---
[address] [id number] PROCEDURE NOTE PATIENT: JUSTUS BLOOM : 1950 MR#: [id number] ADMIT: 07/22/2017 JOB ID: [id number] DATE OF SERVICE: 07/22/2017 PREOPERATIVE DIAGNOSIS(ES): Symptomatic atrial flutter. POSTOPERATIVE DIAGNOSIS(ES): Symptomatic atrial flutter. PROCEDURE PERFORMED: 1. Comprehensive electrophysiology study with left atrial pacing via the coronary sinus catheter. 2. Three-dimensional electroanatomical mapping using the CARTO 3 system. 3. Atrial flutter ablation (cavotricuspid isthmus ablation; supraventricular tachycardia ablation). 4. Fluoroscopy. SURGEON: State [employer] Officer: Brady Cameron MD ASSISTANTS: Kinza Hendrickson, Gurpreet Hernandez. ANESTHESIA: Bolus dosing of Versed and fentanyl were used for local sedation. INDICATION: This patient is a pleasant, 67-year-old man with known coronary artery disease, who has recurrent atrial flutter for which he has significant symptoms. After discussion of risks and benefits of catheter based mapping and ablation, he opted to proceed. PROCEDURAL DESCRIPTION: Following informed signed consent, the patient was taken to the EP laboratory in a fasting and sedated state where he was prepped in a sterile fashion. The right inguinal region was infiltrated with 1% lidocaine. Then, using modified Seldinger technique, one 8 and two 7-[place] sheaths were inserted in the right femoral vein. 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 Ultimately I was able to navigate through this stenosis. Through the sheaths, a deflectable decapolar catheter was advanced to the coronary sinus with the most proximal bipoles at the os of the sinus. A 20 pole isthmus catheter was used to encircle the tricuspid annulus. A J curve Smart Touch irrigated ablation catheter was brought to the table and used to create a three-dimensional electroanatomical map of the right atrium, tricuspid annulus, and cavotricuspid isthmus. The patient was in sinus rhythm at the onset of the case. Pacing was undertaken from the coronary sinus os while monitoring the atrial activation pattern on the Livewire catheter. A linear series of ablations was performed from the ventricular to the IVC aspect of the isthmus ultimately leading to medial to lateral block. Lateral to medial block was confirmed. A 20 minute waiting period was undertaken during which bidirectional block was confirmed. During the course of this study, we did complete a comprehensive electrophysiology study with right atrial pacing recording, right ventricular pacing on His bundle recording, left atrial pacing recording and left atrial pacing recording via the coronary sinus catheter. All catheters and sheaths were removed. Manual pressure was held for hemostasis. Also of note, I did redeploy the ablation catheter through an SR-0 long sheath for more stability along the isthmus. COMPLICATIONS: None. ESTIMATED BLOOD LOSS: Negligible. FINDINGS: 1. Baseline rhythm is sinus with an RR interval of 1185 msec UT 159 msec, QRS 101 msec, QT 444 msec. 2. Intracardiac intervals: AH interval 94 msec, HV 40 msec. 3. Retrograde conduction. No VA conduction was seen. 4. Atrial flutter ablation with bidirectional block as described above. Delivery transisthmus time was 133 msec in both directions. IMPRESSION: Successful cavotricuspid isthmus ablation for recurrent atrial flutter. PLAN: 1. Bedrest x4 hours. 2. Continue current medication regimen including . First dose was to be given in post procedure area. 3. Follow up with Bird Miranda in clinic in four weeks. ATTENDING STATEMENT: Brady Cameron MD, Electrophysiology attending was present for and supervised/performed all aspects of this procedure.
== END | disposition home or self-care (01) ==
LOC: SOUO 00:01
PROVIDERS: ATTEND Internal Medicine Cardiovascular Disease
DX: I48.92 Unspecified atrial flutter (principal); I25.10 Atherosclerotic heart disease of native coronary artery without angina pectoris; Z79.01 Long term (current) use of anticoagulants; Z79.02 Long term (current) use of antithrombotics/antiplatelets; Z95.5 Presence of coronary angioplasty implant and graft; I87.1 Compression of vein
CPT/HCPCS: 36415; 80048; 85025; 85610; 93005; 93613; 93621; 93653; 99152; 99153; C1730; C1731; C1732; C1893; J1644; J2250; J3010